=== PATIENT | female | born 1975 | race Caucasian/White ===

== ENCOUNTER 2017-02-08 15:57 | Emergency (ER) | payer SELFPAY ==
[~2017-02-08] VITALS: Ht 172.7 cm; Wt 102.9 kg
[2017-02-08 16:07] VITALS: BP 181/108
[2017-02-08] MEDS ORDERED: NORCO 5/3251 TABLET PO (17:03)
== END 2017-02-08 17:36 | disposition home or self-care (01) ==
LOC: EME 15:57
PROC: 2W3EX1Z Immobilization of Right Hand using Splint (ICD-10-PCS; principal; 2017-02-08)
DX: S62.366A Nondisplaced fracture of neck of fifth metacarpal bone, right hand, initial encounter for closed fracture (principal); W00.0XXA Fall on same level due to ice and snow, initial encounter
CPT/HCPCS: 73090; 73130; 99281; 99283

== ENCOUNTER 2017-08-02 19:02 | Inpatient (IN) | payer OTHER ==
[~2017-08-02] VITALS: Ht 170.2 cm; Wt 100.4 kg
[~2017-08-02 19:02] MED LIST: NORCO 5/3251 TABLET PO
[2017-08-02 19:51] LABS: INTER. NORMALIZED RATIO 1.2; PROTHROMBIN TIME 12.7 SEC (10.2-12.9)
[2017-08-02 19:53] LABS: HEMATOCRIT 13.3 % (36.0-46.0); MCH 25.9 PG (29.0-34.0); MCHC 31.6 G/DL (30.0-36.0); MCV 82.1 FL (83-99); MEAN PLAT.VOLUME 11.4 uM^3 (9.5-12.4); PLATELET COUNT 263 K/uL (156-360); RBC DIS.WIDTH-CV 14.7 % (11.8-14.6); RBC DIS.WIDTH-SD 44.9 % (39-53); RED BLOOD COUNT 1.62 M/uL (3.80-5.20); WHITE BLOOD COUNT 9.2 K/uL (4.1-10.2)
[2017-08-02 19:55] LABS: CHLORIDE 108 mEq/L (99-109); POTASSIUM 4.1 mEq/L (3.7-5.4); SODIUM 137 mEq/L (136-147)
[2017-08-02 19:57] LABS: GLUCOSE 112 mg/dL (70-99)
[2017-08-02 19:58] LABS: ANION GAP 6 MEQ/L (2-14)
[2017-08-02 20:01] LABS: GFR ESTIMATE (CALCULATED) > 59 mL/min/
[2017-08-02 20:02] LABS: UREA NITROGEN (BUN) 14 mg/dL (9-23)
[2017-08-02 20:09] LABS: QUANTITATIVE HCG < 4.0 MIU/ML
[2017-08-02 21:15] VITALS: BP 147/76
[2017-08-02 21:35] VITALS: BP 138/70
[2017-08-02] MEDS ORDERED: EXCEDRIN MIGRA1 EAC3 PO (21:49)
[2017-08-02] MEDS ORDERED: MOTRIN IB200 MG PO (21:51)
[2017-08-02 23:26] VITALS: BP 178/82
[2017-08-03] VITALS (23 sets, daily range): BP systolic 127–176; BP diastolic 60–91
[2017-08-03 08:17] LABS: HEMATOCRIT 20.4 % (36.0-46.0); MCV 84.6 FL (83-99)
[2017-08-03 08:26] LABS: ALKALINE PHOSPHATASE 46 IU/L (3-129); ANION GAP 5 MEQ/L (2-14); CHLORIDE 107 MEQ/L (99-109); GFR ESTIMATE (CALCULATED) 58 mL/min/; GLUCOSE 133 mg/dL (70-99); POTASSIUM 3.6 MEQ/L (3.7-5.4); SAMPLE HEMOLYSIS CHECK 0; SAMPLE ICTERIC CHECK 0; SAMPLE LIPEMIA CHECK 0; SODIUM 137 MEQ/L (136-147); TOTAL BILIRUBIN 0.4 MG/DL (0.0-1.0); UREA NITROGEN (BUN) 13 mg/dL (9-23)
[2017-08-03 08:27] LABS: IRON 34 MCG/DL (35-150)
[2017-08-03 08:44] LABS: FERRITIN 8 NG/ML (10-291)
[2017-08-03 12:10] LABS: HBSG INDEX 0.18
[2017-08-03 12:11] LABS: ANTI-HEPATITIS A VIRUS (IGM) Nonreactive; ANTI-HEPATITIS B CORE (IGM) Nonreactive; HAV INDEX 0.13; HBC IgM INDEX 0.06
[2017-08-03 12:12] LABS: HIV INDEX 0.15; HIV-1/2 AB/AG COMBO Nonreactive
[2017-08-03 12:18] LABS: TREPONEMA ANTIBODY NEGATIVE (NEGATIVE)
[2017-08-03 13:41] LABS: CHLAMYDIA TRACHOMATIS POSITIVE; NEISSERIA GONORRHOEAE NEGATIVE
[2017-08-03 20:41] LABS: HEMATOCRIT 23.6 % (36.0-46.0); MCH 27.7 PG (29.0-34.0); MCHC 33.5 G/DL (30.0-36.0); MCV 82.8 FL (83-99); MEAN PLAT.VOLUME 11.3 uM^3 (9.5-12.4); PLATELET COUNT 207 K/uL (156-360); WHITE BLOOD COUNT 10.6 K/uL (4.1-10.2)
[2017-08-03 20:42] LABS: RED BLOOD COUNT 2.85 M/uL (3.80-5.20)
[2017-08-04 00:21] VITALS: BP 147/74
[2017-08-04 04:15] VITALS: BP 156/79
[2017-08-04 07:46] VITALS: BP 118/78
[2017-08-04] MEDS ORDERED: MEGACE20 MG PO (10:48)
[2017-08-04] MEDS ORDERED: FERRETTS106 MG PO (10:52)
[2017-08-04 11:37] LABS: HEMATOCRIT 25.4 % (36.0-46.0); MCV 84.4 FL (83-99)
[2017-08-05 19:35] LABS: HCV RNA (IU/mL) <15 IU/mL (<15)
[2017-08-06 08:33] LABS: HCV RNA (LOG IU/mL) <1.18 (<1.18)
== END 2017-08-04 12:46 | disposition home or self-care (01) | DRG 760 ==
LOC: EME 19:02 → EDOF 22:06 → 2EAST 22:06 → ENRESERV 22:25 → 2EAST 23:11
PROVIDERS: Emergency Medicine; Hospitalist; Internal Medicine; Obstetrics & Gynecology
PROC: 30233N1 Transfusion of Nonautologous Red Blood Cells into Peripheral Vein, Percutaneous Approach (ICD-10-PCS; principal; 2017-08-02)
DX: N93.8 Other specified abnormal uterine and vaginal bleeding (principal); D62 Acute posthemorrhagic anemia; A74.9 Chlamydial infection, unspecified; E87.6 Hypokalemia; F17.200 Nicotine dependence, unspecified, uncomplicated; E66.9 Obesity, unspecified; Z68.34 Body mass index [BMI] 34.0-34.9, adult; N83.202 Unspecified ovarian cyst, left side; N83.201 Unspecified ovarian cyst, right side
CPT/HCPCS: 76856; 80048; 80053; 80074; 82607; 82728; 82746; 83540; 84443; 84466; 84702; 85014; 85018; 85027; 85610; 86703; 86780; 86850; 86900; 86901; 86920; 87210; 87491; 87522 90; 87591; 93005; 99281; 99285; J0696; J1940; J7030; J7050; P9016

== ENCOUNTER 2018-01-14 19:14 | Inpatient (IN) | payer OTHER ==
[~2018-01-14] VITALS: Ht 170.2 cm; Wt 99.3 kg
[~2018-01-14 19:14] MED LIST changes: +EXCEDRIN MIGRA1 EAC3 PO; +FERRETTS106 MG PO; +MEGACE20 MG PO; +MOTRIN IB200 MG PO
[2018-01-14 20:22] LABS: CHLORIDE 107 mEq/L (99-109); POTASSIUM 3.7 mEq/L (3.7-5.4); SODIUM 139 mEq/L (136-147)
[2018-01-14 20:23] LABS: GLUCOSE 93 mg/dL (70-99)
[2018-01-14 20:26] LABS: HEMATOCRIT 21.6 % (36.0-46.0); HEMOGLOBIN 6.9 G/DL (11.9-15.5); MCH 26.8 PG (29.0-34.0); MCHC 31.9 G/DL (30.0-36.0); PLATELET COUNT 372 K/uL (156-360); RBC DIS.WIDTH-CV 14.7 % (11.8-14.6); RBC DIS.WIDTH-SD 45.3 % (39-53); RED BLOOD COUNT 2.57 M/uL (3.80-5.20); WHITE BLOOD COUNT 11.6 K/uL (4.1-10.2)
[2018-01-14 20:27] LABS: GFR ESTIMATE (CALCULATED) > 59 mL/min/
[2018-01-14 20:28] LABS: UREA NITROGEN (BUN) 10 mg/dL (9-23)
[2018-01-14] MEDS ORDERED: IRON325 M1 PO (21:56)
[2018-01-14] MEDS ORDERED: EXCEDRIN MIGRA1 EAC3 PO (21:56)
[2018-01-14 22:05] LABS: QUANTITATIVE HCG < 4.0 MIU/ML
[2018-01-15 00:43] VITALS: BP 190/89
[2018-01-15 00:55] LABS: APPEARANCE CLOUDY ((CLEAR)); BILIRUBIN NEGATIVE; BLOOD LARGE; COLOR YELLOW ((YELLOW)); GLUCOSE (STRIP) NEGATIVE; KETONES 5; LEUKOCYTES LARGE; NITRITE POSITIVE; PROTEIN (STRIP) >=500; UROBILINOGEN 0.2 MG/DL (0.2-1.0)
[2018-01-15 01:44] LABS: BACTERIA 2+ /HPF; EPITHELIAL CELLS RARE /HPF; MUCUS NONE SEEN /LPF; RED BLOOD CELLS TNTC /HPF (0-5); UCUL ADDED? YES; WHITE BLOOD CELLS TNTC /HPF (0-5)
[2018-01-15 06:23] LABS: HEMATOCRIT 20.3 % (36.0-46.0); MCH 27.2 PG (29.0-34.0); MCHC 32.5 G/DL (30.0-36.0); MCV 83.5 FL (83-99); RBC DIS.WIDTH-CV 14.3 % (11.8-14.6); RBC DIS.WIDTH-SD 43.8 % (39-53); RED BLOOD COUNT 2.43 M/uL (3.80-5.20); WHITE BLOOD COUNT 8.3 K/uL (4.1-10.2)
[2018-01-15 06:25] LABS: CHLORIDE 107 mEq/L (99-109); POTASSIUM 3.3 mEq/L (3.7-5.4); SODIUM 139 mEq/L (136-147)
[2018-01-15 06:26] LABS: HEMOGLOBIN 6.6 G/DL (11.9-15.5)
[2018-01-15 06:27] LABS: GLUCOSE 115 mg/dL (70-99)
[2018-01-15 06:30] LABS: PLATELET COUNT 245 K/uL (156-360); TOTAL BILIRUBIN 0.4 mg/dL (0.0-1.0)
[2018-01-15 06:31] LABS: ALKALINE PHOSPHATASE 65 IU/L (3-129); GFR ESTIMATE (CALCULATED) > 59 mL/min/
[2018-01-15 06:32] LABS: UREA NITROGEN (BUN) 9 mg/dL (9-23)
[2018-01-15 06:33] LABS: AST (GOT) 12 IU/L (2-34)
[2018-01-15 06:34] LABS: ALT (GPT) 8 IU/L (3-49); DIRECT BILIRUBIN 0.2 mg/dL (0.0-0.3)
[2018-01-15 07:05] LABS: PLAT.SUFFICIENCY ADEQUATE
[2018-01-15 07:30] LABS: IRON 40 MCG/DL (35-150); TRANSFERRIN (TIBC) 231.9 mg/dL (215-380); TRANSFERRIN SATUR. 17 % (20-55)
[2018-01-15 08:12] VITALS: BP 166/79
[2018-01-15 08:20] LABS: FERRITIN 8 NG/ML (10-291)
[2018-01-15 08:34] LABS: THYROTROPIN (TSH) 5.1 MIU/L (0.4-5.5)
[2018-01-15 11:41] LABS: BASOPHIL (%) 0.4 % (0-1); EOSINOPHIL (%) 2.3 % (0-5); EOSINOPHIL COUNT 0.2 K/uL (0-0.3); HEMATOCRIT 24.4 % (36.0-46.0); IMMATURE GRANULOCYTE (%) 0.3 % (0.0-0.7); LYMPHOCYTE (%) 28.8 % (15-42); LYMPHOCYTE COUNT 2.6 K/uL (1.0-2.8); MCH 27.3 PG (29.0-34.0); MCHC 32.8 G/DL (30.0-36.0); MCV 83.3 FL (83-99); MONOCYTE (%) 7.8 % (3-12); MONOCYTE COUNT 0.7 K/uL (0-0.8); NEUTROPHIL (%) 60.4 % (45-76); NEUTROPHIL COUNT 5.5 K/uL (1.8-6.4); PLATELET COUNT 303 K/uL (156-360); RBC DIS.WIDTH-CV 14.2 % (11.8-14.6); RBC DIS.WIDTH-SD 43.2 % (39-53); WHITE BLOOD COUNT 9.1 K/uL (4.1-10.2)
[2018-01-15 11:42] LABS: RED BLOOD COUNT 2.93 M/uL (3.80-5.20)
[2018-01-15 15:52] VITALS: BP 144/71
[2018-01-15 16:16] LABS: SOURCE URINE
[2018-01-15 19:28] VITALS: BP 135/63
[2018-01-15 23:33] VITALS: BP 174/91
[2018-01-16 03:36] VITALS: BP 151/74
[2018-01-16 07:05] LABS: BASOPHIL (%) 0.4 % (0-1); BASOPHIL COUNT 0.1 K/uL (0-0.1); EOSINOPHIL (%) 2.5 % (0-5); EOSINOPHIL COUNT 0.3 K/uL (0-0.3); HEMATOCRIT 26.3 % (36.0-46.0); HEMOGLOBIN 8.5 G/DL (11.9-15.5); IMMATURE GRANULOCYTE (%) 0.2 % (0.0-0.7); LYMPHOCYTE (%) 20.4 % (15-42); LYMPHOCYTE COUNT 2.5 K/uL (1.0-2.8); MCH 27.2 PG (29.0-34.0); MCHC 32.3 G/DL (30.0-36.0); MCV 84.3 FL (83-99); MONOCYTE (%) 6.2 % (3-12); MONOCYTE COUNT 0.8 K/uL (0-0.8); NEUTROPHIL (%) 70.3 % (45-76); NEUTROPHIL COUNT 8.5 K/uL (1.8-6.4); PLATELET COUNT 298 K/uL (156-360); RBC DIS.WIDTH-CV 14.5 % (11.8-14.6); RED BLOOD COUNT 3.12 M/uL (3.80-5.20); WHITE BLOOD COUNT 12.1 K/uL (4.1-10.2)
[2018-01-16 07:34] LABS: CHLORIDE 109 MEQ/L (99-109); GFR ESTIMATE (CALCULATED) > 59 mL/min/; GLUCOSE 97 mg/dL (70-99); SODIUM 139 MEQ/L (136-147); UREA NITROGEN (BUN) 12 mg/dL (9-23)
[2018-01-16 07:42] VITALS: BP 156/76
[2018-01-16] MEDS ORDERED: NIFEDIPINE ER30 MG PO (11:18)
[2018-01-16] MEDS ORDERED: MEDROXYPROGESTER5 MG PO (11:18)
[2018-01-16] MEDS ORDERED: DAILY VALUE1 EACH PO (11:18)
[2018-01-16] MEDS ORDERED: KEFLEX500 MG PO (11:19)
[2018-01-16] MEDS ORDERED: VITRON-C TABLE1 EACH PO (11:19)
[2018-01-16 11:46] VITALS: BP 169/96
[2018-01-16] MEDS ORDERED: LISINOPRIL10 MG PO (11:54)
[2018-01-18 13:01] LABS: CHLAMYDIA TRACHOMATIS NEGATIVE; NEISSERIA GONORRHOEAE NEGATIVE
== END 2018-01-16 12:59 | disposition home or self-care (01) | DRG 78 ==
LOC: EME 19:14 → EDOF 01-15 00:55 → ENRESERV 01-15 00:58 → 3EAST 01-15 15:29
PROVIDERS: Emergency Medicine; Hospitalist; Internal Medicine; Obstetrics & Gynecology Obstetrics
PROC: 30233N1 Transfusion of Nonautologous Red Blood Cells into Peripheral Vein, Percutaneous Approach (ICD-10-PCS; principal; 2018-01-15)
DX: I67.4 Hypertensive encephalopathy (principal); N39.0 Urinary tract infection, site not specified; D62 Acute posthemorrhagic anemia; N93.8 Other specified abnormal uterine and vaginal bleeding; N92.0 Excessive and frequent menstruation with regular cycle; Z68.34 Body mass index [BMI] 34.0-34.9, adult; F17.210 Nicotine dependence, cigarettes, uncomplicated; E66.9 Obesity, unspecified; A74.9 Chlamydial infection, unspecified; R01.1 Cardiac murmur, unspecified; B96.20 Unspecified Escherichia coli [E. coli] as the cause of diseases classified elsewhere; I10 Essential (primary) hypertension; Z82.5 Family history of asthma and other chronic lower respiratory diseases; Z83.3 Family history of diabetes mellitus
CPT/HCPCS: 70450; 71046; 80048; 80076; 81003; 82728; 83540; 84443; 84466; 84702; 85025; 85027; 86038; 86850; 86900; 86901; 86920; 87077; 87086; 87186; 87491; 87591; 93306; 93880; 99281; 99285; J0696; J0780; J1200; J1940; J3420; J7030; P9016